=== PATIENT | male | born 1955 | race Caucasian/White ===

== ENCOUNTER → 2023-06-20 09:54 | Outpatient (REF) | payer OTHER, SELFPAY | LOC: WDC 09:54 | PROVIDERS: ATTENDING PHYSICIAN Family Medicine | DX: N63.42 Unspecified lump in left breast, subareolar (principal) | CPT/HCPCS: 76642; 77062; 77066 ==

== ENCOUNTER → 2024-08-27 07:28 | Outpatient (REF) | payer OTHER, SELFPAY | LOC: RAD 07:28 | PROVIDERS: ATTENDING PHYSICIAN Family Medicine | DX: F17.200 Nicotine dependence, unspecified, uncomplicated (principal) | CPT/HCPCS: 71046 ==

== ENCOUNTER → 2024-11-04 06:41 | Outpatient (REF) | payer OTHER, SELFPAY | LOC: RAD 06:41 | PROVIDERS: ATTENDING PHYSICIAN Family Medicine | DX: R79.89 Other specified abnormal findings of blood chemistry (principal) | CPT/HCPCS: 76700 ==